=== PATIENT | female | born 1930 | race Two or more races ===

== ENCOUNTER 2018-03-02 18:18 | Emergency (ER) | payer OTHER ==
[~2018-03-02] VITALS: Ht 152.4 cm; Wt 60.8 kg
[~2018-03-02 18:18] MED LIST: APAP/HYDROCODON1 T13 PO; ASPIR 8181 MG PO; ASPIR LOW81 MG PO; ATENOLOL50 MG PO; ATIVAN0.5 M1 PO; CIPROFLOXACIN500 MG PO; COL100 PO; CYCLOBENZAPRINE5 MG PO; FLA500 PO; FLO4 PO; GENERLAC10 GM/15 M PO; GLU850 PO; GOOD SENSE ASPI81 M3 PO; HUMULIN R100 U/1 M1 SQ; LAC PO; LEVAQUIN250 MG PO; LEVAQUIN750 MG PO; LEVEMIR100 U/M1 SC; LEVOTHYROXIN0.025 M2 PO; LOTENSIN10 MG PO; METP PO; OMEPRAZOLE DR20 M1 PO; PHENAZOPYRIDIN200 M3 PO; PRILOSEC20 MG PO; TRAMADOL HCL50 MG PO; VITAMIN D2400 I1 PO
[2018-03-02 18:37] VITALS: Ht 152.4 cm; Wt 60.8 kg
[2018-03-02 21:31] VITALS: BP 139/79
== END 2018-03-02 21:31 | disposition home or self-care (01) ==
LOC: ED 18:18
DX: S42.201A Unspecified fracture of upper end of right humerus, initial encounter for closed fracture (principal); S62.001A Unspecified fracture of navicular [scaphoid] bone of right wrist, initial encounter for closed fracture; I10 Essential (primary) hypertension; E11.9 Type 2 diabetes mellitus without complications; Z88.8 Allergy status to other drugs, medicaments and biological substances; W10.8XXA Fall (on) (from) other stairs and steps, initial encounter; Y93.89 Activity, other specified; Y92.89 Other specified places as the place of occurrence of the external cause; Y99.8 Other external cause status
CPT/HCPCS: J3010

== ENCOUNTER 2018-04-15 10:11 | Emergency (ER) | payer OTHER ==
[~2018-04-15] VITALS: Ht 152.4 cm; Wt 57.6 kg
[2018-04-15 10:26] VITALS: Ht 152.4 cm; Wt 57.6 kg
[2018-04-15 11:02] LABS: BASOPHIL % 0.9 % (0-2); PLATELET COUNT 240 x10^3mcL (130-400); RED CELL DISTRIBUTION WIDTH 13.9 % (11.5-14.5)
[2018-04-15 11:25] LABS: CALCIUM 9.5 mg/dL (8.5-10.1); CARBON DIOXIDE 20.4 mmol/L (21-32); CHLORIDE SERUM 105 mmol/L (98-107); CREATININE SERUM 0.9 mg/dL (0.6-1.0); GLUCOSE SERUM 228 mg/dL (74-106); POTASSIUM SERUM 3.5 mmol/L (3.5-5.1); SODIUM SERUM 138 mmol/L (136-145)
[2018-04-15 11:29] LABS: ALBUMIN 2.9 g/dL (3.4-5.0); ALKALINE PHOSPHATASE 109 U/L (46-116); ALT/SGPT 26 U/L (14-59); AST/SGOT 22 U/L (15-37); BILIRUBIN TOTAL 0.77 mg/dL (0.20-1.00); TOTAL PROTEIN, SERUM 8.1 g/dL (6.4-8.2)
[2018-04-15 14:20] VITALS: BP 119/61
== END 2018-04-15 14:20 | disposition home or self-care (01) ==
LOC: ED 10:11
PROVIDERS: Emergency Medicine
DX: R42 Dizziness and giddiness (principal); I10 Essential (primary) hypertension; E11.9 Type 2 diabetes mellitus without complications; Z88.8 Allergy status to other drugs, medicaments and biological substances
CPT/HCPCS: 36415; J8597

== ENCOUNTER 2019-02-24 09:32 | Emergency (ER) | payer OTHER ==
[~2019-02-24] VITALS: Ht 152.4 cm; Wt 56.7 kg
[2019-02-24 09:40] VITALS: Ht 152.4 cm; Wt 56.7 kg
[2019-02-24 10:49] VITALS: BP 118/74
== END 2019-02-24 10:49 | disposition home or self-care (01) ==
LOC: ED 09:32
DX: M25.512 Pain in left shoulder (principal); M25.511 Pain in right shoulder; I10 Essential (primary) hypertension; M19.90 Unspecified osteoarthritis, unspecified site; Z90.89 Acquired absence of other organs; Z90.49 Acquired absence of other specified parts of digestive tract; Z98.890 Other specified postprocedural states; Z88.8 Allergy status to other drugs, medicaments and biological substances
CPT/HCPCS: J1885